=== PATIENT | female | born 1940 | race Two or more races ===

== ENCOUNTER 2023-12-26 11:45 | Inpatient (IN) | payer OTHER ==
[~2023-12-26] VITALS: Ht 152.4 cm; Wt 63.5 kg
[2023-12-31] MEDS ORDERED: SYNTHROID100 MCG PO (10:33)
[2023-12-31] MEDS ORDERED: ENALAPRIL MALE2.5 MG PO (10:33)
[2023-12-31] MEDS ORDERED: GRALISE600 MG PO (10:34)
[2023-12-31] MEDS ORDERED: MONTELUKAST SOD10 MG PO (10:34)
[2023-12-31] MEDS ORDERED: RESTORIL30 MG PO (10:34)
[2023-12-31 14:38] LABS: PARTIAL THROMBOPLASTIN TIME 28.8 SECONDS (22.0-34.0); PROTHROMBIN TIME 10.9 SECONDS (9.0-11.5)
[2024-01-01] MEDS ORDERED: CEFAZOLIN SODIUM 1,000 MG VIAL ONE (10:22)
[2024-01-01] MEDS ORDERED: TRANEXAMIC ACID 100MG/1ML (1000MG) AMPUL IV ONE (10:22)
[2024-01-01] MEDS ORDERED: ENALAPRILAT DIHYDRATE 1.25 MG/ML VIAL IV PRN (13:30)
[2024-01-01] MEDS ORDERED: KETOROLAC TROMETHAMINE 60 MG VIAL IM ONE (14:01)
[2024-01-01] MEDS ORDERED: VANCOMYCIN HCL 1,000 MG VIAL ONE (14:01)
[2024-01-01] MEDS ORDERED: LIDOCAINE HCL 1%/EPINEPHRINE 20ML VIAL IJ ONE (14:01)
[2024-01-01] MEDS ORDERED: BUPIVACAINE HCL/MPF 0.5% 30ML VIAL ONE (14:19)
[2024-01-01] MEDS ORDERED: ONDANSETRON HCL 2 MG/ML VIAL IV PRN (19:15)
[2024-01-01] MEDS ORDERED: MORPHINE SULFATE 4 MG/ML CARTRIDGE IV PRN (19:15)
[2024-01-01] MEDS ORDERED: SODIUM CHLORIDE 0.45 % 1,000 ML IV SCH (19:15)
[2024-01-01] MEDS ORDERED: OxyCODONE HCL 5 MG TABLET (ROXICODONE) PO PRN (19:15)
[2024-01-02] MEDS ORDERED: ACETAMINOPHEN 500 MG GEL..CAP PO SCH
[2024-01-02] MEDS ORDERED: CEFAZOLIN SODIUM 1,000 MG VIAL IV SCH (01:00)
[2024-01-02] MEDS ORDERED: GABAPENTIN 300 MG CAPSULE PO SCH (01:00)
[2024-01-02] MEDS ORDERED: LEVOTHYROXINE SODIUM 100 MCG TABLET PO SCH (06:00)
[2024-01-02 08:28] LABS: HEMATOCRIT 33.2 % (36.0-45.00); HEMOGLOBIN 11.3 g/dL (12.0-15.00); MEAN CELL VOLUME 86.1 fL (80.00-100.00); MEAN CORPUSCULAR HEMOGLOBIN 29.3 pg (27.00-32.0); PLATELET COUNT 150 K/uL (150-450); RED BLOOD COUNT 3.86 M/uL (4.00-6.00); RED CELL DISTRIBUTION WIDTH 14.2 % (11.5-14.5)
[2024-01-02] MEDS ORDERED: APIXABAN 2.5 MG TABLET PO SCH (09:00)
[2024-01-02] MEDS ORDERED: ELIQUIS2.5 MG PO (09:00)
[2024-01-02] MEDS ORDERED: SENNOSIDES 1 TAB TABLET PO SCH (09:00)
[2024-01-02] MEDS ORDERED: DUI500 PO (09:00)
[2024-01-02] MEDS ORDERED: PERCOCET 5-3251 EACH PO (09:00)
[2024-01-02] MEDS ORDERED: ENALAPRIL MALEATE 2.5 MG TABLET PO SCH (09:00)
[2024-01-02] MEDS ORDERED: VITAMIN B COMPLEX 1 EACH PO SCH (13:10)
[2024-01-02] MEDS ORDERED: SOD FERRIC GLUC COMPLX/SUCROSE 62.5 MG/5 ML AMPUL IV SCH (13:11)
[2024-01-02] MEDS ORDERED: Cyanocobalamin/Mecobalamin 1 TAB.SL SL SCH (13:11)
[2024-01-02 14:24] LABS: HEMATOCRIT 36.2 % (36.0-45.00); HEMOGLOBIN 12.3 g/dL (12.0-15.00); MEAN CELL VOLUME 86.9 fL (80.00-100.00); MEAN CORPUSCULAR HEMOGLOBIN 29.5 pg (27.00-32.0); MEAN CORPUSCULAR HGB CONC 33.9 g/dl (32.0-36.0); PLATELET COUNT 185 K/uL (150-450); RED BLOOD COUNT 4.17 M/uL (4.00-6.00); RED CELL DISTRIBUTION WIDTH 14.3 % (11.5-14.5)
[2024-01-02 14:49] LABS: ALBUMIN 3.2 gm/dL (3.4-5.0); BILIRUBIN TOTAL 0.62 mg/dL (0.3-1.2); CALCIUM 8.8 mg/dL (8.5-10.1); CREATININE SERUM 1.2 mg/dL (0.55-1.02); GFR 43.01; GLOBULINA 3.1 G/DL (2.4-3.5); POTASSIUM 3.41 mEq/L (3.5-5.1); TOTAL PROTEIN 6.3 gm/dL (6.4-8.2)
[2024-01-03 07:13] LABS: HEMATOCRIT 32.7 % (36.0-45.00); HEMOGLOBIN 11.2 g/dL (12.0-15.00); MEAN CELL VOLUME 86.3 fL (80.00-100.00); MEAN CORPUSCULAR HEMOGLOBIN 29.5 pg (27.00-32.0); MEAN CORPUSCULAR HGB CONC 34.2 g/dl (32.0-36.0); PLATELET COUNT 151 K/uL (150-450); RED BLOOD COUNT 3.79 M/uL (4.00-6.00); RED CELL DISTRIBUTION WIDTH 14.3 % (11.5-14.5)
[2024-01-03] MEDS ORDERED: IRON FUM,PS/FOLIC ACID/VITC/B3 1 CAP CAPSULE PO SCH (09:00)
== END 2024-01-03 18:12 | DRG 470 ==
LOC: SURG 01-01 06:05 → O/R 01-01 06:05 → SURG 01-01 07:00 → EDBD 01-01 08:45 → SURG 01-01 17:27
PROVIDERS: ADMIT Orthopaedic Surgery; ATTEND Orthopaedic Surgery
PROC: 0SUC07Z Supplement Right Knee Joint with Autologous Tissue Substitute, Open Approach (ICD-10-PCS; 2024-01-01)
PROC: 0SRC0J9 Replacement of Right Knee Joint with Synthetic Substitute, Cemented, Open Approach (ICD-10-PCS; principal; 2024-01-01 07:00)
DX: M17.11 Unilateral primary osteoarthritis, right knee (principal); D62 Acute posthemorrhagic anemia; M22.11 Recurrent subluxation of patella, right knee; I10 Essential (primary) hypertension